=== PATIENT | female | born 1990 | race Caucasian/White ===

== ENCOUNTER 2025-03-28 14:36 | Outpatient (CLI) | payer OTHER, SELFPAY ==
[2025-03-28 14:46] VITALS: BP 128/80; PULSE 81
--- NOTE | 2025-03-28 14:52 | PC.NURSE ---
14:40 PT ARRIVES TO OB TRIAGE OF C/O SITTING DOWN TO HARD AND NOW NOT FEELING THE BABY MOVE NORMALLY. PT DENIES LOF, VB AND CTX. WITH PT PERMISSION EFM PLACED X2.
[2025-03-28 14:54] VITALS: TEMP 36.5; BMI 43.9
--- NOTE | 2025-03-28 15:07 | PC.NURSE ---
15:05 DR MARCOS CALLED AND GIVEN SBAR. PROVIDER SAID WHEN NST IS REACTIVE AND MOVEMENT MARKER HAS BEEN PRESSED 10 TIMES WITHIN 2 HRS, PT CAN BE DISCHARGED. IF NON REACTIVE FOR GA OR THE FM MARKER HAS NOT BEEN PRESSED AT LEAST 10 TIMES CALL PROVIDER BACK FOR ADDITIONAL ORDERS.
--- NOTE | 2025-03-28 15:19 | PC.NURSE ---
RN AT BEDSIDE EDUCATING PT ON LABOR PRECAUTIONS AND KICK COUNTS
== END 2025-03-28 15:29 | disposition home or self-care (01) ==
LOC: S4S1 14:39 → S4SX 14:39
PROVIDERS: Referring Provider Obstetrics & Gynecology; Visit Provider Obstetrics & Gynecology
DX: O36.8130 Decreased fetal movements, third trimester, not applicable or unspecified (principal); Z3A.30 30 weeks gestation of pregnancy
CPT/HCPCS: 59025